=== PATIENT | female | born 1950 | race Caucasian/White ===

== ENCOUNTER 2023-08-28 13:05 | Outpatient (CLI) | payer MEDICARE, OTHER, SELFPAY ==
--- NOTE | 2023-08-28 13:11 | CA_ITS ---
FINAL REPORT TECHNIQUE: Guadalupe scale, color and spectral doppler images of the bilateral carotid arteries were obtained. CLINICAL HISTORY: right carotid bruit, HTN COMPARISON: None FINDINGS: Peak systolic velocity in the right internal carotid artery is 337 cm/sec. The internal carotid to common carotid artery ratio is 5.7. There is 70 to 99% carotid artery stenosis and moderate plaque formation. The right vertebral artery is normal in direction. Peak systolic velocity in the left internal carotid artery is 145 cm/sec. The internal carotid to common carotid artery ratio is 2.2. There is less than 50% carotid artery stenosis and mild plaque formation. The left vertebral artery is normal in direction. IMPRESSION: Elevated velocities suggest significant greater than 70% stenosis of the right internal carotid artery. Would suggest CTA or catheter angiography for further evaluation. These results were given to Dr. Maki by the surface mount technology operator, Tania Hernandez. Velocities in the left internal carotid artery suggest less than 50% carotid artery stenosis. Reviewed, Interpreted and Dictated by Anastasiya Ferrari MD Transcribed by Concepcion Leon Authenticated and [facility]
== END 2023-08-28 23:59 ==
LOC: RT 13:08
PROVIDERS: Visit Provider Internal Medicine
DX: I10 Essential (primary) hypertension (principal); R00.2 Palpitations; R09.89 Other specified symptoms and signs involving the circulatory and respiratory systems; R94.31 Abnormal electrocardiogram [ECG] [EKG]
CPT/HCPCS: 93270; 93880

== ENCOUNTER 2023-09-04 06:39 | Outpatient (CLI) | payer MEDICARE, OTHER, SELFPAY ==
--- NOTE | 2023-09-04 06:50 | CT_ITS ---
APPROVED REPORT Charge Coordinator: CLINICAL INDICATION Chest Pain TECHNIQUE Image Acquisition: A 128 slice MDCT scanner (Encore.fma View) was used for data acquisition. A noncontrast coronary calcium scan was performed. A CT attenuation threshold of 130 Hounsfield units (HU) was used for the detection of calcium in contiguous voxels of 1 sq mm in area to be counted as individual lesions. Bolus tracking in the ascending aorta with a threshold of 180 HU was performed. Immediately afterwards, ECG synchronized cardiac CT was then performed from the cardiac base to apex using retrospective gating with ECG tube current modulation. A total of 85 mL of Isovue 370 mg/mL contrast medium was administered at 5 mL/sec followed by a saline flush using a biphasic injection protocol. A tube voltage of 120 KVp was used. The patient received the following medications prior to the cardiac CT. 25 mg of oral metoprolol 0.8 mg of sublingual nitroglycerin The average heart rate at the time of acquisition was 59 bpm and regular. Image Reconstruction Transaxial images were reconstructed at 0.67 mm slide thickness. Data was reviewed interactively on an advanced workstation capable of 2 and 3-dimensional displays in all conventional reconstruction formats, including multiplanar reformations, maximum intensity projections, curved multiplanar reformations, and volume rendered reconstructions. When applicable, selected routine images describing the relevant coronary anatomy and pathology were saved and sent to PACS. Complications None Technical Quality Overall image quality was good. Coronary artery opacification was adequate. Total DLP (Dose-Length Product) is 1645.5 mGy-cm. The reported value represents the total of one or more individual components during the CT acquisition of this date and at this time, and as such, the same value may appear in more than one CT report depending on the interpreting/reporting physicians. COMPARISON None FINDINGS CT Coronary Calcium Scoring LMA (Left Main Artery) = 0 LAD (Left Anterior Descending) = 0 LCX (Left Coronary Circumflex) = 0 RCA (Right Coronary Artery) = 0 Total Calcium Score = 0 using the AJ-130 method. The interpretation of the calcium heart score is based on the following continuum*: 0 = no calcified plaque detected (risk of coronary artery disease is very low ??? less than 5%) 1-10 = calcium detected in extremely minimal levels (risk of coronary diseases is still low ??? less than 10%) 11-100 = mild levels of plaque detected with certainty (mild or minimal narrowing of heart arteries is likely) 101-400 = definite,at least moderate levels of plaque detected (relatively high risk of a heart attack within 3-5 years) >401-999 = extensive levels of plaque detected (high risk of heart attack, high levels of vascular disease are present, high likelihood of at least one significant coronary narrowing) *The calcium heart score quantifies the burden of coronary calcification/plaque in the coronary arteries. The calcium heart score is not able to evaluate the presence or burden of non-calcified (i.e. soft) plaque. There is no identifiable calcification in the aortic valve, mitral annulus or mitral valve, pericardium, or myocardium. Coronary CT Angiography The coronary arterial system is right dominant. Quantitative Stenosis Grading: Left Main (LM): The left main originates normally from the left sinus of Valsalva. The LM bifurcates into the left anterior descending artery and left circumflex artery. The LM is patent with no evidence of atherosclerosis. Left Anterior Descending (LAD) and Diagonal Branches: The LAD gives off 3 diagonal branch(es). The LAD and its branches are patent with no evidence of atherosclerosis. There is no evidence of LAD-myocardial bridge. Left Circumflex (LCX) and Obtuse Marginals (OM): The LCX gives off 1 Obtuse Marginal (OM) branch. The LCX and its branches are patent with no evidence of atherosclerosis. Right Coronary Artery (RCA): The RCA originates normally from the right sinus of Valsalva. The RCA gives off a posterior descending artery (PDA) and posterolateral (PL) branches. The RCA and its branches are patent with no evidence of atherosclerosis. Non-Coronary Cardiac Findings: Analysis of the left ventricular (LV) structure and function was performed after 3-D reconstruction of the LV from axial images, with user-corrected automatic contouring for assessment of LV volumes and user-defined reconstruction from oblique planes for measurement of 3-D cardiac structure and function. -The left ventricle systolic function is normal (LVEF 66%) -There is no left atrial appendage filling defect. Two right pulmonary veins and two left pulmonary veins drain normally into the left atrium. -No pericardial thickening or calcification. -Central and branch pulmonary arteries in the [id number] are unremarkable. -Thoracic aorta within the visualized thoracic aortic-branches in the [id number] is unremarkable. Extracardiac Structures No significant extra-cardiac findings. Note, however, that this study is focused on the cardiac findings. IMPRESSION -No coronary calcification with an Agatston score = 0 using the AJ-130 method. -No evidence of significant flow-limiting atherosclerosis of the coronary arteries. -No evidence of coronary anomalies or bridge. -CAD-RADS 0. Management recommendations per ACC/AHA guidelines*, as clinically appropriate. *Recommendations: CAD RADS 0: Reassurance. Consider non-atherosclerotic causes of chest pain. CAD RADS 1: Consider non-atherosclerotic causes of chest pain. Consider preventive therapy and risk factor modification. CAD RADS 2: Consider non-atherosclerotic causes of chest pain. Consider preventive therapy and risk factor modification, particularly for patients with nonobstructive plaque in multiple segments. CAD RADS 3: Consider further functional testing. Consider symptom-guided anti-ischemic and preventive pharmacotherapy as well as risk factor modification per published guideline statements. CAD RADS 4A: Consider further functional testing or invasive coronary angiography with revascularization per published guideline statements. Consider symptom-guided anti-ischemic and preventive pharmacotherapy as well as risk factor modification per published guideline statements. CAD RADS 4B: Invasive coronary angiography recommended with revascularization per published guideline statements. Consider symptom-guided anti-ischemic and preventive pharmacotherapy as well as risk factor modification per published guideline statements. CAD RADS 5: Consider invasive angiography and/or viability assessment with revascularization per published guideline statements. Consider symptom-guided anti-ischemic and preventive pharmacotherapy as well as risk factor modification per published guideline statements. CRITICAL RESULT None COMMUNICATION Per this written report The coronary and cardiac findings of this CCTA were reviewed, reported, and signed by Andrew Aparicio MD (Airfield Manager) Conclusion Electronically signed by : Valerie Aparicio MD 09/06/2023 15:23:51
[2023-09-04 07:29] VITALS: BMI 26.9
[2023-09-04] MEDS: METOPROLOL TARTRATE 25MG TABLET 25 MG (07:43)
[2023-09-04 07:53] LABS: Anion Gap 11.2 mEq/L (5-15); Blood Urea Nitrogen 14 mg/dl (7-17); Calcium 9.4 mg/dl (8.4-10.2); Carbon Dioxide 28 mmol/L (22.0-30.0); Chloride 107 mmol/L (98-107); Creatinine Clearance Estimated 58 mL/min (50-200); Estimated Glomerular Filt Rate 82 ml/min (>60); GFR (African American) 100 ML/MIN (>60); Glucose 99 mg/dl (74-100); Potassium 4.2 mmoL/L (3.5-5.1); Sodium 142 mmol/L (136-145)
[2023-09-04 08:19] VITALS: BP 178/102; PULSE 70; RESP 16; O2SAT 95
[2023-09-04] MEDS: NITROGLYCERIN 0.4MG SL TABLET 0.400000000000000022 MG SL ×2 (08:19→08:20)
[2023-09-04 08:22] VITALS: BP 170/96
[2023-09-04 08:27] VITALS: BP 137/71; PULSE 62; RESP 16; O2SAT 98
[2023-09-04 08:37] VITALS: BP 146/69; PULSE 58; RESP 16; O2SAT 98
[2023-09-04] MEDS: IOPAMIDOL-370 (76%);100ML BOTTLE 85 ML IV (08:38)
[2023-09-04] MEDS: 0.9 % SODIUM CHLORIDE 50 ML VIAL IV (08:38)
--- NOTE | 2023-09-04 08:38 | CA_ITS ---
APPROVED REPORT EXAM: Comprehensive 2D, Doppler, and color-flow Echocardiogram Quitline Counselor: Silvina Olivera RT(R) Ht: 5 ft 4 in Wt: 157lbs BSA: 1.76 BP: 156/76 mmHg Indications: palpitations, HTN, abn EKG 2D Dimensions Left Atrium 3.16 cm F: 2.7 - 3.8 LVEF (Allison's) 52.40 % F: 54 - 74 LVOT 1.93 cm (M/F) 1.5-2.5 LV Volume 79.60 mL F: 46 - 106 LV Volume Index 45.0 mL/m2 F: 29 - 61 LA Volume 36.10 mL LA Volume Index 20.40 mL/m2 (M/F) 16-34 EF AP4 59.20 % EF AP2 47.7 % EF BP 52.4 % GL Strain -17.9 % M-Mode Dimensions RVDd 3.26 cm (0.9-2.6) LVDd 4.90 cm (3.5-5.7) Ao Diam 2.06 cm (2.0-3.7) LVDs 3.38 cm (3.5-5.7) IVSd 0.68 cm (0.6-1.1) PWd 0.87 cm (0.6-1.1) EF (Teich) 58.50% FS 31.00% EDV (Teich) 112.80 mL ESV (Teich) 46.80 mL LV Diastology E Decel Time 189 (160-240 msec) E/A Ratio 1.1 MED E' 6.5 (>= 7 cm/sec) E'/MED E' Ratio 11.09 (<= 14) LAT E' 6.2 (>= 10 cm/sec) E/LAT E' Ratio 11.63 (<= 14) Mitral Valve MV E Max Allen. 72.0 (40-130 cm/s) MV A Velocity 68.0 (40-130 cm/s) E/A Ratio 1.06 MV Decel. Time 189 (160-240 ms) Tricuspid Valve TR P. Velocity 251.00 cm/s RAP Estimate 15.00 mmHg RVSP 40.20 mmHg Left Ventricle The left ventricle is normal size. The left ventricular systolic function is normal. The left ventricular ejection fraction is within the normal range. There is increased LV wall thickness. There is normal LV segmental wall motion. Grade 2 diastolic dysfunction is present. LVEF is 55%. Right Ventricle The right ventricle is mildly dilated. The right ventricular systolic function is normal. Atria The left atrium is mildly dilated. The right atrium is mildly dilated. There is no Doppler evidence of interatrial shunt. Aortic Valve Aortic valve is mildly thickened. There is no aortic valvular stenosis. Mild aortic regurgitation. Mitral Valve The mitral valve leaflets are mildly thickened. No evidence of mitral valve stenosis. Moderate mitral regurgitation. Tricuspid Valve The tricuspid valve leaflets are thin and pliable. Moderate tricuspid regurgitation. RVSP is 20-25 mmHg. Pulmonic Valve The pulmonary valve is normal in structure. Mild pulmonic regurgitation. Great Vessels The aortic root is normal in size. The ascending aorta is normal in size. IVC is normal in size and collapses >50% with inspiration. Pericardium There is no pericardial effusion. Other Information Study Quality: Fair Conclusion Normal LV systolic function. Mild RV dilation with normal RV function. Mild AI. Moderate MR. Moderate TR. RVSP 20-25 mmHg. Electronically signed by : Valerie Aparicio MD 09/06/2023 21:42:18
== END 2023-09-04 23:59 ==
LOC: RAD 06:40
PROVIDERS: Visit Provider Nurse Practitioner Family
DX: I10 Essential (primary) hypertension (principal); R00.2 Palpitations; R09.89 Other specified symptoms and signs involving the circulatory and respiratory systems; R94.31 Abnormal electrocardiogram [ECG] [EKG]; I65.23 Occlusion and stenosis of bilateral carotid arteries
CPT/HCPCS: 75571; 75574; 80048; 93306; Q9967

== ENCOUNTER 2023-09-25 08:17 | Day surgery (SDC) | payer MEDICARE, OTHER, SELFPAY ==
[2023-09-25] VITALS (18 sets, daily range): BP systolic 80–150; BP diastolic 55–81; PULSE 52–74; RESP 17–20; O2SAT 95–99; BMI 27.9
--- NOTE | 2023-09-25 07:03 | IR_ITS ---
APPROVED REPORT Patient Location: Outpatient PROCEDURES Selective engagement of the right vertebral artery with right vertebral artery angiogram Selective engagement of the left vertebral artery with right vertebral artery angiogram Selective engagement of the right carotid artery with right internal carotid artery angiogram Right internal carotid artery intracerebral carotid angiogram Selective engagement of the left carotid artery with left internal carotid artery angiogram Left internal carotid artery intracerebral carotid angiogram Bilateral selective renal angiography INDICATION Severe right carotid artery stenosis, Mild to moderate left carotid artery stenosis, Preoperative evaluation for anticipated carotid artery revascularization, Hypertension suspect renovascular hypertension from renal artery stenosis Informed consent was obtained prior to the procedure. COMPLICATIONS NONE Estimated Blood Loss: LESS THAN 10 ml TECHNIQUE One percent lidocaine was used to anesthetize the right groin. The right femoral artery was accessed via the Seldinger technique. A 4-Persian sheath was placed in the right femoral artery. The JR-4 catheter was used to cannulate the above arteries and perform selective angiography of the bilateral vertebral arteries and bilateral carotid arteries. Intracerebral carotid artery angiography was performed. Because patient had carotid artery stenosis with hypertension bilateral renal artery angiography was performed due to the high correlation between carotid artery stenosis and renal artery stenosis ANGIOGRAPHIC RESULTS Right vertebral artery widely patent into the basilar artery Left vertebral artery is dominant widely patent into the basilar artery Right common carotid artery is widely patent Right internal carotid artery has a concentric 80 to 90% stenosis. Distally there are no aneurysmal dilatations or atherosclerotic plaque Left common carotid artery is widely patent Left internal carotid artery has proximal smooth 20 to 30% stenosis. 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 Patient will be referred to [facility] for evaluation of revascularization of the right internal carotid artery TCAR versus stenting versus carotid endarterectomy 2. Continue with high intensity statin therapy with goal LDL less than 55 3. Aspirin 81 mg daily 4. Control of hypertension Electronically signed by : Steffen Maki MD 09/25/2023 11:31:16
[2023-09-25 09:01] LABS: Basophils # 0.1 K/mm3 (0-0.2); Basophils % 1.2 % (0.1-2.0); Eosinophils # 0.3 K/mm3 (0.0-0.4); Eosinophils % 3.3 % (0.1-12.0); Hematocrit 42.7 % (37.0-47.0); Hemoglobin 14.4 g/dL (12.2-16.2); Lymphocytes # 1.9 K/mm3 (0.7-4.5); Lymphocytes % 24.6 % (10-50); Mean Corpuscular HGB Conc 33.8 g/dL (31.8-35.4); Mean Corpuscular Hemoglobin 32.4 pg (27.0-31.2); Mean Corpuscular Volume 95.8 fl (81-99); Mean Platelet Volume 8.6 fl (7.4-10.4); Monocytes # 0.4 K/mm3 (0.1-1.0); Monocytes % 4.6 % (1.7-9.3); Neutrophils # 5.2 K/mm3 (1.8-7.8); Neutrophils % 66.2 % (37.0-80.0); Platelet Count 221 K/mm3 (142-424); Red Blood Count 4.46 M/mm3 (4.20-5.40); Red Cell Distribution Width 13.5 % (11.5-17.5); White Blood Count 7.8 K/mm3 (4.8-10.8)
[2023-09-25 09:09] LABS: Chloride 112 mmol/L (98-107); Sodium 142 mmol/L (136-145)
[2023-09-25 09:12] LABS: Blood Urea Nitrogen 17 mg/dl (7-17); Carbon Dioxide 28 mmol/L (22.0-30.0); Creatinine Clearance Estimated 60 mL/min (50-200); Estimated Glomerular Filt Rate 71 ml/min (>60); GFR (African American) 86 ML/MIN (>60)
[2023-09-25 09:13] LABS: Calcium 9.3 mg/dl (8.4-10.2); Glucose 111 mg/dl (74-100)
[2023-09-25] MEDS: 0.9 % SODIUM CHLORIDE 500 ML 25 ML IV (10:00)
[2023-09-25] MEDS: diphenhydrAMINE 50MG/ML VIAL 50 MG IV (10:00)
[2023-09-25] MEDS: HEPARIN 1,000 UNITS/500ML NS (CATH LAB) 3000 UNIT IV (10:00)
[2023-09-25] MEDS: LIDOCAINE 1% 10ML MDV 20 ML IJ (10:00)
[2023-09-25] MEDS: FENTANYL 100MCG/2ML VIAL 50 MCG IV (10:24)
[2023-09-25] MEDS: MIDAZOLAM HCL 1MG/1ML 5ML VIAL 1 MG IV (10:24)
[2023-09-25] MEDS: IOPAMIDOL-370 (76%);100ML BOTTLE 60 ML IV (14:19)
== END 2023-09-25 15:00 | disposition home or self-care (01) ==
PROVIDERS: Visit Provider Internal Medicine
DX: I65.23 Occlusion and stenosis of bilateral carotid arteries; Z79.899 Other long term (current) drug therapy; I10 Essential (primary) hypertension; R94.31 Abnormal electrocardiogram [ECG] [EKG]; I70.1 Atherosclerosis of renal artery
CPT/HCPCS: 36224; 36226; 36252; 80048; 85025; 99152; C1725; C1769; J1644; Q9967

== ENCOUNTER 2024-01-22 12:36 | Outpatient (CLI) | payer MEDICARE, OTHER, SELFPAY ==
[2024-01-22 13:58] LABS: Alanine Aminotransferase 20 U/L (12-78); Albumin Level 4.3 g/dl (3.5-5.0); Alkaline Phosphatase 102 U/L (38-126); Aspartate Amino Transferase 32 U/L (14-36); Bilirubin,Indirect 0.5 mg/dL (0.0-0.9); Bilirubin,Total 0.5 mg/dl (0.2-1.3); Bilirubin,Unconjugated 0.6 mg/dL (0.0-1.1); Chol/HDL Ratio 2.5 (1-3.5); Cholesterol 187 mg/dl (140-200); HDL Cholesterol 74 mg/dl (40-60); Total Protein,Serum 6.6 g/dl (6.3-8.2); Triglycerides 110 mg/dl (30-150); VLDL Cholesterol 22 mg/dL (0-40)
[2024-01-22 14:09] LABS: Direct LDL Cholesterol 72.82 mg/dL (100-129)
== END 2024-01-22 23:59 | disposition home or self-care (01) ==
LOC: LAB 12:38
PROVIDERS: Visit Provider Internal Medicine
DX: R09.89 Other specified symptoms and signs involving the circulatory and respiratory systems (principal); I65.23 Occlusion and stenosis of bilateral carotid arteries; I10 Essential (primary) hypertension; E78.5 Hyperlipidemia, unspecified
CPT/HCPCS: 36415; 80061; 80076

== ENCOUNTER 2024-03-05 12:52 | Outpatient (CLI) | payer MEDICARE, OTHER, SELFPAY ==
--- NOTE | 2024-03-05 12:58 | CA_ITS ---
FINAL REPORT TECHNIQUE: Color Doppler, duplex Doppler and sanchez scale sonography of the bilateral neck arterial vasculature was performed. Velocities were measured in the carotid arteries. Stenosis evaluation based on the validated velocity criteria. CLINICAL HISTORY: KNOWN MAGEN,RT BRUIT,HTN,HLD COMPARISON: None FINDINGS: The peak systolic velocity of the right common carotid artery is 60 cm/s. The peak systolic velocity of the right internal carotid artery is 349 cm/s and end diastolic velocity 100 cm/s. The ICA/CCA ratio is 6.4. A moderate amount of plaque is present. The right external carotid artery is patent. The right vertebral artery is patent with antegrade flow. The peak systolic velocity of the left common carotid artery is 63 cm/s. The peak systolic velocity of the left internal carotid artery is 98 cm/s and end diastolic velocity 43 cm/s. The ICA/CCA ratio is 1.6. A mild amount of plaque is present. The left external carotid artery is patent.The left vertebral artery is patent with antegrade flow. IMPRESSION: 70-99% right carotid stenosis. Recommend correlation with catheter angiogram. Less than 50% left carotid stenoses. Bilateral patent vertebral arteries with antegrade flow. Reviewed, Interpreted and Dictated by Onofre Truong III, MD Transcribed by Kadie Fernandez Authenticated and . [facility]
== END 2024-03-05 23:59 | disposition home or self-care (01) ==
LOC: RT 12:54
PROVIDERS: Visit Provider Internal Medicine
DX: R09.89 Other specified symptoms and signs involving the circulatory and respiratory systems (principal); I65.23 Occlusion and stenosis of bilateral carotid arteries
CPT/HCPCS: 93880